=== PATIENT | female | born 1955 | race Caucasian/White ===

== ENCOUNTER → 2016-11-01 | Day surgery (SDC) | payer OTHER ==
[~2016-11-01] MED LIST: ACETAMINOPHEN 325 MG TAB PO PRN; AMBI12.5 PO; CALCTAB19 PO; CARB200T PO; CHLORHEXIDINE GLUCONATE 2 % 1 PACK (2 CLOTHS) TOPICAL PRN; CYCL5TAB PO; ERGO1CAP30 PO; ESTR1 PO; FEXO15TA PO; FEXO60TA PO; FLUT1SPR16; GLUC750T22 PO; HYALURONIDASE/LIDOCAINE/EPINEPHRINE/BUPIVACAINE 6 ML SYR LEFT EYE ONE; INSULIN HUMAN REGULAR 1,000 UNITS/10 ML VIAL SQ PRN; LACTATED RINGER'S 1000 ML IV PRN; LEVO88TA2 PO; LIDOCAINE HCL 1% PF 30 ML VIAL ONE; METOPROLOL TARTRATE 25 MG TAB PO PRN; MOBI7.5T PO; MULTTAB67 PO; POVIDONE IODINE 5% (ANTISEPSIS KIT) 4 APPLICATIONS EACH NARE PRN; PROPARACAINE HCL 0.5% OPHT SOLN 15 ML BTL LEFT EYE ONE; PROPOFOL 200 MG/20 ML AMP ONE; SODIUM CHLORID 0.9% 500 ML IV PRN; TOBRAMYCIN/DEXAMETHASONE OPTH OINT 3.5 GM TUBE ONE; TRIA.1%T TOP; VITA-136 PO; VITA400C70 PO; VITAMIN E PO
[2016-11-01] MEDS: TROPICAMIDE 1% OPHT SOLN 15 ML BTL LEFT EYE SCH ×4 (08:35→08:50)
[2016-11-01] MEDS: PHENYLEPHRINE HCL 10% OPTH SOLN 5 ML BTL LEFT EYE SCH ×4 (08:35→08:50)
[2016-11-01] MEDS: CYCLOPENTOLATE HCL 1% OPHT SOLN 2 ML BTL LEFT EYE SCH ×4 (08:35→08:50)
[2016-11-01] MEDS: FLURBIPROFEN 0.03% OPHT SOLN 2.5 ML BTL LEFT EYE SCH ×4 (08:35→08:50)
[2016-11-01 09:00] VITALS: PULSE 60
[2016-11-01 10:30] VITALS: BP 121/72; PULSE 62; RESP 16; TEMP 97.9; O2SAT 97
--- NOTE | 2016-11-02 15:43 | MP ---
cc: OSBALDO MARQUEZ M.D. DATE OF SURGERY: 11/01/2016. [facility] NUMBER: [id number] PREOPERATIVE DIAGNOSIS Visually significant cataract left eye. POSTOPERATIVE DIAGNOSIS Visually significant cataract left eye. OPERATION Phacoemulsification with posterior chamber lens implantation, left eye. SURGEON Osbaldo Marquez MD ANESTHESIA Retrobulbar with MAC. COMPLICATIONS None DESCRIPTION OF THE PROCEDURE IN DETAIL: After informed consent was obtained, the patient was brought into the operative suite and placed on appropriate monitors by the Anesthesia Service. The patient had received a prior retrobulbar injection of local anesthetic by the Anesthesia Service in the holding area. The patient's operative eye was then prepped and draped in the usual sterile fashion. A wire lid speculum was placed. A paracentesis incision was made in the peripheral cornea with a 1 mm selena keratome. The anterior chamber was filled with viscoelastic. The anterior chamber was then entered through a stepped, clear corneal incision using a sharp 3 mm selena keratome. A circular tear capsulorrhexis was then made with a bent needle cystitome. Following hydrodissection of the lens nucleus with balanced saline, phacoemulsification of the nucleus was performed using a modified chopping technique. The remaining cortex was removed with irrigation/aspiration. The prior two procedures were both performed using the handpieces of the [employer] phaco unit. The capsular bag was then filled with viscoelastic. The intraocular lens was then injected into the capsular bag and positioned. The type of intraocular lens and its power can be found elsewhere in this chart. The remaining viscoelastic was then removed from the anterior chamber with the IA handpiece. The anterior chamber was reformed with balanced saline. The wound was then closed securely with stromal hydration. It was found to be watertight to an intraocular pressure of at least 30 mmHg by palpation. A small amount of balanced salt solution was then removed through the paracentesis site and the intraocular pressure at the end of the case was approximately 20 by palpation. All drapes were then removed. TobraDex ointment was then placed in the eye, which was closed beneath a semi-pressure patch dressing. The patient tolerated this procedure well and left the operating room awake and alert. The patient is to follow-up in my office in the morning. ADDENDUM: After the clear corneal incisions were sealed water-tight, an 8 mm limbal relaxing incision was made with a 600 micron selena blade, centered around the inferior 115 degree meridian. MD FABIAN Nelson/DEBBIE /10:16 AM /3:33 PM
== END | disposition home or self-care (01) ==
LOC: PHSDC 07:05
PROVIDERS: ATTEND Optometrist Occupational Vision
DX: H25.12 Age-related nuclear cataract, left eye (principal); H52.13 Myopia, bilateral; Z96.1 Presence of intraocular lens; Z85.038 Personal history of other malignant neoplasm of large intestine; Z85.820 Personal history of malignant melanoma of skin; Z87.891 Personal history of nicotine dependence; Z79.899 Other long term (current) drug therapy
CPT/HCPCS: 00142; 66984; J7040; V2632

== ENCOUNTER 2016-11-25 15:32 | Emergency (ER) | payer OTHER ==
[~2016-11-25] VITALS: Ht 167.6 cm; Wt 87.5 kg
[~2016-11-25 15:32] MED LIST changes: -ACETAMINOPHEN 325 MG TAB PO PRN; -AMBI12.5 PO; -CHLORHEXIDINE GLUCONATE 2 % 1 PACK (2 CLOTHS) TOPICAL PRN; -CYCL5TAB PO; -FEXO60TA PO; -GLUC750T22 PO; -HYALURONIDASE/LIDOCAINE/EPINEPHRINE/BUPIVACAINE 6 ML SYR LEFT EYE ONE; -INSULIN HUMAN REGULAR 1,000 UNITS/10 ML VIAL SQ PRN; -LACTATED RINGER'S 1000 ML IV PRN; -LIDOCAINE HCL 1% PF 30 ML VIAL ONE; -METOPROLOL TARTRATE 25 MG TAB PO PRN; -POVIDONE IODINE 5% (ANTISEPSIS KIT) 4 APPLICATIONS EACH NARE PRN; -PROPARACAINE HCL 0.5% OPHT SOLN 15 ML BTL LEFT EYE ONE; -PROPOFOL 200 MG/20 ML AMP ONE; -SODIUM CHLORID 0.9% 500 ML IV PRN; -TOBRAMYCIN/DEXAMETHASONE OPTH OINT 3.5 GM TUBE ONE; -TRIA.1%T TOP; -VITA400C70 PO; -VITAMIN E PO
[2016-11-25 15:35] VITALS: BP 149/91; PULSE 97; RESP 15; TEMP 98.4; O2SAT 99
[2016-11-25 17:53] VITALS: BP 160/72; PULSE 82; RESP 17; TEMP 98.9; O2SAT 98
--- NOTE | 2016-11-25 17:53 | RADRPT ---
EXAM DATE/TIME: 11/25/2016 17:24 [facility] COMPARISON: No previous studies available for comparison. INDICATIONS : Knee pain, WC. MEDICAL HISTORY : None. SURGICAL HISTORY : None. ENCOUNTER: Initial ACUITY: 1 day PAIN SCORE: 0/10 LOCATION: Left knee FINDINGS: No definite fractures, or dislocations are identified. No definite lytic or sclerotic lesion is seen . The joint spaces are well maintained. CONCLUSION: Unremarkable study. Darrin Uriostegui MD on November 25, 2016 at 17:52 Board Certified Radiologist. This report was verified electronically.
--- NOTE | 2016-11-25 18:06 | PD ---
HPI Chief Complaint: Injury Time Seen by Provider: 17:52 Travel History International Travel<30 days: No Contact w/Intl Traveler<30days: No Traveled to known affect area: No History of Present Illness HPI 61-year-old female presents the emergency Department with left knee pain is gotten progressively worse since last Saturday. 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 She is unsure of any specific injury but denies previous pain prior to Saturday when she was at work. Patient states the pain has gotten worse over the past 2 days, as today is Saturday, and she states she bent down to get up thing out from under her bed this morning and couldn't get up utilizing her left knee. She describes the pain as aching stiffness which is currently a 7 out of 10. She has no locking or giving out. No history of previous injury to the knee. No history of gout or rheumatoid arthritis. Patient states her pain is worse with sitting too long or bending/flexing the knee. She states it's better with keeping it extended. She is allergic to adhesive, Cipro, and codeine. PFSH Past Medical History Arthritis: No Asthma: No Autoimmune Disease: No Heart Rhythm Problems: No Cancer: Yes (MELONOMA) Cardiovascular Problems: Yes (MITRAL REGURGITATION) High Cholesterol: No Chemotherapy: Yes (YEARS AGO) Chest Pain: No Congestive Heart Failure: No COPD: No Cerebrovascular Accident: No Diabetes: No Endocrine: No Gastrointestinal Disorders: Yes (BLEEDING FROM POLYP. 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) Reproductive: Yes (ENDOMETRIOSIS) Respiratory: No Immunizations Current: Yes Migraines: Yes (ONCE IN A WHILE) Myocardial Infarction: No Radiation Therapy: No Renal Failure: No Seizures: Yes (STARTED AT 6 YRS OLD) Sickle Cell Disease: No Sleep Apnea: No Thyroid Disease: Yes (POST ABLATIVE HYPOTHYROIDISM, NON TOXIC MULTINODAL GOITER ) Ulcer: No Menopausal: Yes : 0 Para: 0 Past Surgical History Abdominal Surgery: Yes (APPENDECTOMY) AICD: No Appendectomy: Yes Arteriovenous Shunt: No Cardiac Surgery: No Cholecystectomy: No Ear Surgery: No Endocrine Surgery: No Eye Surgery: Yes (PHACO RIGHT EYE) Genitourinary Surgery: Yes (BLADDER WAS KNICKED DURING HYSTERECTOMY SURGERY) Gynecologic Surgery: Yes (HYSTERECTOMY) Hysterectomy: Yes Insulin Pump: No Joint Replacement: No Oral Surgery: No Pacemaker: No Thoracic Surgery: No Other Surgery: Yes (APPENDECTOMY 1971, PARTIAL HYST, FIBROIDS REMOVED,2006) Social History Alcohol Use: Yes (RARE SPECIAL OCCASION) Tobacco Use: No Substance Use: No Allergies-Medications (Allergen,Severity, Reaction): Coded Allergies: adhesive (Unverified Allergy, Severe, RASSH, 11/25/16) ciprofloxacin (Unverified Allergy, Severe, LOSS OF MEMORY, 11/25/16) codeine (Unverified Allergy, Severe, STAYS AWAKE, 11/25/16) Reported Meds & Prescriptions Reported Meds & Active Scripts Active Reported Vitamin E (Vitamin E Acetate) 400 Unit Capsule 400 Units PO DAILY Kelley Allergy (Fexofenadine HCl) 180 Mg Tab 180 Mg PO DIRECTED Ergocalciferol 50,000 Unit Cap 50,000 Units PO [id number] Multiple Vitamin 1 Tab 1 Tab PO DAILY Levothyroxine (Levothyroxine Sodium) 88 Mcg Tab 88 Mcg PO DAILY Sm Allergy Relief Nasal S (Fluticasone Propionate (Nasal)) 50 Mcg/Act Spr 2 Spr NA DAILY Estrace (Estradiol) 1 Mg Tab 1 Mg PO DAILY Carbamazepine 200 Mg Tab 200 Mg PO TID Calcium 600+D 200 (Calcium Carbonate-Vitamin D) 600-200 Mg-Unit Tab 1 Tab PO DAILY Physical Exam Narrative GENERAL: Patient appears distress. SKIN: Warm and dry. Normal color. Normal turgor. No rash. No erythema. HEAD: Atraumatic. Normocephalic. EYES: Pupils equal and round. No scleral icterus. No injection or drainage. ENT: No nasal bleeding or discharge. Mucous membranes pink and moist. Pharynx is clear. Airway is patent. NECK: Trachea midline. Supple. CARDIOVASCULAR: Regular rate and rhythm. RESPIRATORY: No accessory muscle use. Clear to auscultation. Breath sounds equal bilaterally. MUSCULOSKELETAL: Extremities without clubbing, cyanosis, or edema. No obvious deformities. Patient has mild effusion to the left anterior knee below the patella. Patient has increased pain with varus and valgus stress along the medial joint line. No obvious laxity is noted. Negative drawer test. NEUROLOGICAL: Awake and alert. No obvious cranial nerve deficits. Motor grossly within normal limits. Five out of 5 muscle strength in the arms and legs. Normal speech. PSYCHIATRIC: Appropriate mood and affect; insight and judgment normal. Data Data Last Documented VS Vital Signs Date Time Temp Pulse Resp B/P (MAP) Pulse Ox O2 Delivery O2 Flow Rate FiO2 11/25/16 17:53 98.9 82 17 160/72 (101) 98 Orders Orders Knee, Complete (4vws) (11/25/16 17:07) Ibuprofen (Motrin) (11/25/16 18:15) Ice/Cold Pack (11/25/16 18:06) Splint Or Brace Apply/Monitor (11/25/16 18:06) MDM Medical Decision Making Medical Screen Exam Complete: Yes Emergency Medical Condition: Yes Differential Diagnosis Workplace injury. Left knee pain. Left knee effusion. Left knee stiffness. Left knee sprain. Narrative Course Patient is medically stable at time of exam. Knee x-ray is ordered. Ice pack is applied. X-ray shows no acute process per radiologist. Patient is given ibuprofen 600 mg by mouth. Patient placed in a knee immobilizer which he should wear for the next week. Worker's Comp. paperwork is filled out with restrictions 1 week. Patient follow-up with her Worker's Comp. provider in one week for reassessment Diagnosis Primary Impression: Left knee sprain Qualified Codes: S83.92XA - Sprain of unspecified site of left knee, initial encounter Referrals: Worker's Comp. provider Patient Instructions: General Instructions, Knee Immobilizer (ED), Knee Sprain (ED) Additional Instructions: X-ray shows no acute process per radiologist. Patient is given ibuprofen 600 mg by mouth. Patient placed in a knee immobilizer which he should wear for the next week. Worker's Comp. paperwork is filled out with restrictions 1 week. Patient follow-up with her Worker's Comp. provider in one week for reassessment Med/Other Pt SpecificInfo: Prescription(s) given Scripts Ibuprofen (Ibuprofen) 600 Mg Tab 600 MG PO Q6H Y for Pain/Inflammation, #40 TAB 0 Refills Prov: Erum Coronado DO 11/25/16 Disposition: 01 DISCHARGE HOME Condition: Stable Rob Gunter Nov 25, 2016 18:06
[2016-11-25] MEDS ORDERED: IBUPROFEN 600 MG TAB PO ONE (18:15)
[2016-11-25] MEDS ORDERED: IBUP-232 PO ×3 (18:24→19:30)
[2016-11-25 19:38] VITALS: BP 150/74
== END 2016-11-25 19:42 | disposition home or self-care (01) ==
LOC: NEPD 15:32
DX: S83.92XA Sprain of unspecified site of left knee, initial encounter (principal); X58.XXXA Exposure to other specified factors, initial encounter; Y92.239 Unspecified place in hospital as the place of occurrence of the external cause; Y99.0 Civilian activity done for income or pay
CPT/HCPCS: 73564; 99283; L1830